=== PATIENT | male | born 1955 | race Caucasian/White ===

== ENCOUNTER 2019-05-12 09:53 | Emergency (ER) | payer MEDICAID ==
[~2019-05-12] VITALS: Ht 193 cm; Wt 82.8 kg
[~2019-05-12 09:53] MED LIST: ACET325T14 PO; Docusate Sodium PO; ENOX40SY4 SQ; ERGO500017 PO; HYDR-3237 PO; IBUP-1222 PO; METH500T7 PO; PANT20TA3 PO
[2019-05-12 09:59] VITALS: BP 145/74
[2019-05-12] MEDS ORDERED: SULFAMETH./TRIMETHOPRIM DS 800MG/160MG TABLET PO ONE (10:30)
[2019-05-12] MEDS ORDERED: CEPHALEXIN 500 MG CAPSULE PO ONE (10:30)
[2019-05-12] MEDS ORDERED: SULFAMETH./TRIMETHOPRIM DS 800MG/160MG TABLET ONE (10:32)
[2019-05-12] MEDS ORDERED: CEPHALEXIN 500 MG CAPSULE ONE (10:32)
[2019-05-12 11:17] LABS: BASOPHILS # (AUTO) 0.11 x10^3/uL (0-0.1); BASOPHILS % (AUTO) 1 % (0-1); EOSINOPHILS # (AUTO) 0.03 x10^3/uL (0-0.4); EOSINOPHILS % (AUTO) 0 % (1-7); LYMPHOCYTES # (AUTO) 1.02 x10^3/uL (1-3.4); LYMPHOCYTES % (AUTO) 6 % (22-44); MD NO; MEAN CORPUSCULAR HEMOGLOBIN 34.6 pg (27.5-34.5); MEAN CORPUSCULAR HGB CONC 33.3 g/dL (33.2-36.2); MEAN CORPUSCULAR VOLUME 103.8 fL (81-97); MEAN PLATELET VOLUME 6.1 fL (7.4-10.4); MONOCYTES # (AUTO) 0.83 x10^3/uL (0.2-0.8); MONOCYTES % (AUTO) 5 % (2-9); NEUTROPHILS # (AUTO) 14.47 x10^3/uL (1.8-6.8); NEUTROPHILS % (AUTO) 88 % (42-75); PLATELET COUNT 295 x10^3/uL (130-400); RED BLOOD COUNT 4.01 x10^6/uL (4.38-5.82); RED CELL DISTRIBUTION WIDTH 12.5 % (9.4-14.8)
[2019-05-12 11:26] LABS: ANION GAP 8 mmol/L (5-15); CALCIUM 8.7 mg/dL (8.5-10.1); CHLORIDE 99 mmol/L (98-107); CREATININE 0.76 mg/dL (0.7-1.3)
[2019-05-12] MEDS ORDERED: NEOSPORIN OINT. PKT 1 PACKET ONE (11:41)
== END 2019-05-12 12:05 | disposition home or self-care (01) ==
LOC: ED 11:39
DX: H60.12 Cellulitis of left external ear (principal); L03.113 Cellulitis of right upper limb; L03.011 Cellulitis of right finger; L03.012 Cellulitis of left finger; D72.829 Elevated white blood cell count, unspecified
CPT/HCPCS: 36415; 80048; 85025; 99283

== ENCOUNTER 2019-06-11 12:53 | Emergency (ER) | payer MEDICARE, MEDICAID ==
[~2019-06-11] VITALS: Ht 193 cm; Wt 79.3 kg
[2019-06-11 12:57] VITALS: BP 124/68
--- NOTE | 2019-06-11 14:12 | NUR ---
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
--- NOTE | 2019-06-11 14:15 | NUR ---
PT AMBULATORY TO ED ROOM 11. PT MUTE. TRACHEOSTOMY. PT INDICATES SKIN LESIONS X 2 MONTHS. LESIONS TO LT FOREARM, THUMB, INDEX FINGER, LT EAR. WROTE ON NOTEPAD LESIONS STARTED AFTER MEDICATION RAN OUT.
--- NOTE | 2019-06-11 14:58 | NUR ---
PT NOT IN ROOM; ELOPED.
== END 2019-06-11 15:00 | disposition left against medical advice (07) ==
LOC: ED 14:55
DX: L21.9 Seborrheic dermatitis, unspecified (principal); R21 Rash and other nonspecific skin eruption; Z85.21 Personal history of malignant neoplasm of larynx
CPT/HCPCS: 99281; 99282

== ENCOUNTER 2019-08-12 14:43 | Emergency (ER) | payer MEDICARE, MEDICAID ==
[~2019-08-12 14:43] MED LIST changes: -PANT20TA3 PO; +PANT20TA4 PO
[2019-08-12 14:55] VITALS: BP 135/75
--- NOTE | 2019-08-12 15:26 | NUR ---
PT ELOPED, NOT SEEN BY RN OR ERMD PRIOR TO LEAVING.
== END 2019-08-12 20:38 | disposition left against medical advice (07) ==
LOC: ED 15:39
DX: J02.9 Acute pharyngitis, unspecified (principal); Z53.21 Procedure and treatment not carried out due to patient leaving prior to being seen by health care provider

== ENCOUNTER 2019-09-26 15:53 | Emergency (ER) | payer MEDICARE, MEDICAID ==
[~2019-09-26] VITALS: Ht 177.8 cm; Wt 68.2 kg
[~2019-09-26 15:53] MED LIST changes: +PANT20TA3 PO; -PANT20TA4 PO
[2019-09-26 15:59] VITALS: BP 102/71
[2019-09-26] MEDS ORDERED: NEOSPORIN OINT. PKT 1 PACKET ONE (16:17)
[2019-09-26] MEDS ORDERED: DIPH,PERTUSS(ACELL),TET VAC/PF 0.5 ML IM-VACC ONE (16:30)
--- NOTE | 2019-09-26 17:10 | NUR ---
PT TO BATHROOM INDEPENDENTLY WITH A STEADY GAIT.
--- NOTE | 2019-09-26 17:31 | NUR ---
NOTIFIED BY TECH THAT PT ISN'T IN ROOM. UNABLE TO FIND PT IN ED. PROVIDER NOTIFIED.
== END 2019-09-26 17:44 | disposition left against medical advice (07) ==
LOC: ED 17:38
DX: S00.81XA Abrasion of other part of head, initial encounter (principal); S00.31XA Abrasion of nose, initial encounter; S09.90XA Unspecified injury of head, initial encounter; M54.2 Cervicalgia; R00.0 Tachycardia, unspecified; F10.20 Alcohol dependence, uncomplicated; Y90.0 Blood alcohol level of less than 20 mg/100 ml; Z72.9 Problem related to lifestyle, unspecified; Z85.21 Personal history of malignant neoplasm of larynx; W01.0XXA Fall on same level from slipping, tripping and stumbling without subsequent striking against object, initial encounter; Y93.89 Activity, other specified; Y92.410 Unspecified street and highway as the place of occurrence of the external cause; Y99.8 Other external cause status
CPT/HCPCS: 70450; 72125; 93005; 99285